=== PATIENT | male | born 1970 | race Two or more races ===

== ENCOUNTER → 2017-12-23 | Outpatient (CLI) | payer BC ==
--- NOTE | 2017-12-23 19:43 | PN ---
PROGRESS NOTE 47-year-old male patient coming in for annual check regarding obstructive sleep apnea treatment. The patient diagnosed having severe FRANCIS with an AHI of 30, currently on CPAP pressure of 11. Since last year, the patient has lost significant amount of weight. He used to weigh 313 pounds. Currently is down to 275. He is very compliant. He is using CPAP every night. He is benefitting from treatment. He is waking up refreshed and alert during the day. Averaging around 8.8 hours of CPAP use per night. Leak factor is 6 L per minute, and his AHI is down to 0.4 and he is using AirFit F20 large size full-face mask. No heartburn. No shortness of breath at nighttime. No angina. No palpitations. No other complaints otherwise. REVIEW OF SYSTEMS: Full review of system was done. Positive findings are mentioned in history of present illness. PHYSICAL EXAMINATION: BP is 168/79, pulse is 70, respirations 16, temperature 98.5. Saturation 97% on room air. Weight is 275, height is 6 feet 0 inches. General appearance: Appears calm and comfortable. Head is atraumatic, normocephalic. NECK: Supple. There is no JVD. No goiter or neck masses. LUNGS: Clear to auscultation. HEART: Sounds regular rate and rhythm. Normal S1, S2. No S3. No murmurs. ABDOMEN: Soft, nontender. No organomegaly. EXTREMITIES: No edema. No cyanosis or clubbing. Neurologic: He is awake and alert. No focal neurological deficits. PSYCHIATRIC: Negative for anxiety or depression. IMPRESSION: 1. Severe obstructive sleep apnea with apnea/hypopnea index of 30, currently on CPAP pressure of 11. 2. Obesity with interval weight loss. BMI is 37. 3. Hypersomnia, improved. PLAN: 1. Encourage further weight loss. 2. Continue CPAP therapy at same level of pressure. 3. All of the supplies were reviewed. 4. See me back in a year's time, earlier if needed. MMODL / IJN: [id number] /
== END ==
LOC: SLEEP 16:32
PROVIDERS: ATTEND Internal Medicine Critical Care Medicine
DX: G47.33 Obstructive sleep apnea (adult) (pediatric) (principal); E66.9 Obesity, unspecified; G47.10 Hypersomnia, unspecified; Z68.37 Body mass index [BMI] 37.0-37.9, adult; Z99.89 Dependence on other enabling machines and devices

== ENCOUNTER → 2019-03-02 | Outpatient (CLI) | payer BC ==
--- NOTE | 2019-03-02 18:32 | PN ---
PROGRESS NOTE Kevin is 48, coming in for an annual check regarding obstructive sleep apnea and severe FRANCIS with an AHI of 30. Since his last evaluation he has undergone a right hip replacement at [facility]. Surgery went fine and he is able to lose weight. Note that at the time of his diagnosis he was around 313 pounds and currently is down to 278. He continues to be compliant. He is using an AirFit F10 full-face mask. His CPAP pressure is 11. He has been averaging 8.3 hours of CPAP use per night. CPAP use for more than 4 hours is 100%. Leak is 2 L/minute and AHI is down to 0.8 with an [place] score of 6. No heartburn or chest pain. No shortness of breath. No angina. No palpitations. No other complaints otherwise. PHYSICAL EXAMINATION: VITAL SIGNS: BP 147/76, pulse 56, respirations 16, temperature 98.0, saturation 97% on room air. Height is 6 feet 1 inch, weight 287. BMI 37.8. GENERAL APPEARANCE: Calm, comfortable. HEAD: Atraumatic, normocephalic. NECK: Supple. No JVD. No goiter or neck masses. LUNGS: Clear to auscultation. HEART: Heart sounds are regular rate and rhythm. Normal S1, S2. No S3, S4. No murmurs. ABDOMEN: Soft, nontender. No organomegaly. 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 Pulses are equal and symmetrical in lower extremities bilaterally. SKIN: Negative for any wounds or ulceration. NEUROLOGIC: Alert and oriented x3. No focal neurological deficits. IMPRESSION: 1. Obstructive sleep apnea, currently on CPAP pressure of 11. Treatment continues to be extremely successful. His disease is severe at baseline with an AHI of 30. 2. Hypersomnia, improved. 3. Obesity, improving. The patient's weight is down to 287 with a BMI of 37.8. 4. Arthritis; underwent right hip replacement. Awaiting left knee replacement in the future. PLAN: Continue treatment at the same level of pressure. I have offered the patient an AirFit F20 full-face mask, large size, as an alternative, which he likes and is waiting to undertake the switch. I will see him back in the office in a year's time. Treatment is successful for now. Encourage further weight loss. MMODL / IJN: [id number] /
== END | disposition home or self-care (01) ==
LOC: SLEEP 16:54
PROVIDERS: ATTEND Internal Medicine Critical Care Medicine
DX: G47.33 Obstructive sleep apnea (adult) (pediatric) (principal); G47.10 Hypersomnia, unspecified; E66.9 Obesity, unspecified; M17.12 Unilateral primary osteoarthritis, left knee; Z68.37 Body mass index [BMI] 37.0-37.9, adult; Z96.641 Presence of right artificial hip joint